=== PATIENT | female | born 1950 | race Caucasian/White ===

== ENCOUNTER 2019-01-24 13:42 | Outpatient (REF) | payer SELFPAY ==
[2019-01-24 19:03] LABS: Anion Gap 9.8 mmol/L (3-11); BUN 11 mg/dL (7-18); CO2 27.2 mmol/L (21.0-32.0); CREATININE 0.86 mg/dL (0.55-1.02); Calcium 9.2 mg/dL (8.5-10.1); Chloride 102 mmol/L (98-107); Glucose 104 mg/dL (70-100); Potassium 4.3 mmol/L (3.5-5.1); Sodium 139 mmol/L (136-145)
== END 2019-01-24 14:02 ==
LOC: NCHCN 13:42
PROVIDERS: PCP Physician Assistant Medical; Visit Provider Nurse Practitioner Family
DX: I10 Essential (primary) hypertension (principal)
CPT/HCPCS: 80048

== ENCOUNTER 2019-12-05 10:20 | Outpatient (REF) | payer MEDICARE, BC, SELFPAY ==
[2019-12-05 20:04] LABS: Anion Gap 7.9 mmol/L (3-11); BUN 12 mg/dL (7-18); CO2 31.1 mmol/L (21.0-32.0); Calcium 8.9 mg/dL (8.5-10.1); Calculated LDL 129 mg/dL (<100); Chloride 102 mmol/L (98-107); Cholesterol 213 mg/dL (<200); Glucose 103 mg/dL (74-106); HDL Cholesterol 61 mg/dL (40-60); Potassium 3.7 mmol/L (3.5-5.1); Sodium 141 mmol/L (136-145); Triglyceride 115 mg/dL (<150)
== END 2019-12-05 10:40 ==
LOC: NCHCN 10:20
PROVIDERS: PCP Physician Assistant Medical; Visit Provider Nurse Practitioner Family
DX: I10 Essential (primary) hypertension (principal); Z13.6 Encounter for screening for cardiovascular disorders
CPT/HCPCS: 80048; 80061